=== PATIENT | male | born 1985 | race African-American/Black ===

== ENCOUNTER 2018-02-20 23:26 | Emergency (ER) | payer SELFPAY ==
[2018-02-20] MEDS ORDERED: Lidocaine Viscous Sol 2% 15 ml UD Cup ONE (23:51)
[2018-02-21] MEDS ORDERED: Adacel (T-DAP) 0.5 ML VIAL ONE (00:10)
[2018-02-21 00:14] LABS: #Basophils 0.1 thou/uL (0.0-0.2); #Eosinphils 0.3 thou/uL (0.0-0.7); #Lymphocytes 2.9 thou/uL (1.20-3.40); #Monocytes 0.9 thou/uL (0.11-0.59); #Neutrophils 7.1 thou/uL (1.40-6.50); %Basophils 0.5 % (0.0-1.0); %Eosinophils 2.3 % (0.0-10.0); %Lymphocytes 25.9 % (21.0-51.0); %Neutrophils 63.3 % (42.0-75.0); Hemoglobin 13.8 g/dL (14.0-18.0); Mean Corpuscular HGB CONC 32.2 g/dL (32.0-36.0); Mean Corpuscular Hemoglobin 27.1 pg (27.0-31.0); Mean Corpuscular Volume 84.1 fL (78.0-98.0); Mean Platelet Volume 5.7 fL (7.4-10.4); Platelet Count 396 thou/uL (130-400); RBC Distribution Width 12.3 % (11.5-14.5); White Blood Cell (WBC) Count 11.2 thou/uL (4.8-10.8)
[2018-02-21 00:27] LABS: ALT (SGPT) 13 U/L (8-55); AST (SGOT) 14 U/L (5-34); Albumin 4.5 g/dL (3.5-5.0); Alkaline Phosphatase 100 U/L (40-150); Anion Gap 20 mmol/L (10-20); BUN (Urea Nitrogen) 12 mg/dL (8.9-20.6); Bilirubin, Total 0.2 mg/dL (0.2-1.2); CK (CPK) 248 U/L (30-200); Calc. Creatinine Clearance 0 mL/min (70-130); Calcium 10.4 mg/dL (7.8-10.44); Carbon Dioxide 20 mmol/L (22-29); Chloride 103 mmol/L (98-107); Estimated GFR-MDRD 75; Globulin 3.3 g/dL (2.4-3.5); Glucose 115 mg/dL (70-105); Potassium 4.1 mmol/L (3.5-5.1); Protein, Total 7.8 g/dL (6.0-8.3); Sodium 139 mmol/L (136-145)
[2018-02-21 00:29] LABS: Troponin I Less than 0.010 ng/mL (< 0.028)
[2018-02-21] MEDS ORDERED: Bacitracin Zinc 1 Packet ONE (00:32)
[2018-02-21] MEDS ORDERED: Ketorolac Tromethamine 30 MG/ML VIAL ONE (01:00)
--- NOTE | 2018-02-21 08:21 | RAD ---
RIGHT WRIST 3 VIEWS: HISTORY: Injury with pain. FINDINGS: Carpals appear normally aligned. No acute fracture is seen. Deformity of the 5th metacarpal is seen consistent with old healed fracture. IMPRESSION: No evidence of acute fracture. POS: [facility]
--- NOTE | 2018-02-21 08:43 | RAD ---
LEFT WRIST THREE VIEWS: 02/20/2018 HISTORY: Prior wrist fracture. Injury. Pain. COMPARISON: None. FINDINGS: A remote fracture involving the body of the scaphoid is noted. The proximal pole of the scaphoid dem onstrates an irregular cortical margin, and there is volume loss involving the proximal aspect of the scaphoid bone. There is advanced degenerative change involving the radial carpal joint and the usha culation between the proximal aspect of the scaphoid bone and the lateral aspect of the lunate. Ther e is a degree of developing SLAC suspected, with the capitate slightly proximally displaced. No acut e fracture or dislocation. 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 Nonemergent follow-up orthopedic consultation sug gested. POS: [facility]
== END 2018-02-21 01:08 ==
LOC: ERS 23:26
DX: T43.621A Poisoning by amphetamines, accidental (unintentional), initial encounter (principal); S60.511A Abrasion of right hand, initial encounter; M25.531 Pain in right wrist; M25.532 Pain in left wrist; F31.9 Bipolar disorder, unspecified; F17.210 Nicotine dependence, cigarettes, uncomplicated
CPT/HCPCS: 36416; 80053; 82550; 84484; 85025; 90471; 90715; 93005; 96374; J1885